=== PATIENT | female | born 1990 | race African-American/Black ===

== ENCOUNTER 2016-12-09 00:52 | Emergency (ER) | payer MEDICAID ==
[~2016-12-09] VITALS: Ht 154.9 cm; Wt 63.5 kg
[2016-12-09 00:55] VITALS: BP 124/82; PULSE 94; RESP 16; TEMP 98.6; O2SAT 96
--- NOTE | 2016-12-09 00:55 | NUR ---
Patient to ER bed 7 to gown for evaluation. Side rails up. Report given to Charlie TAVARES.
--- NOTE | 2016-12-09 00:58 | NUR ---
Pt presents to ED with c/o bilateral suprapubic and lower back pain 10/10, with shooting pain sensation down bilateral upper thighs since 7 pm yesterday. Pt stated she has implant in left arm for control, denies having any menstrual period. A&Ox4, denies SOB or chestpain, denies N/V/D. Skin intact. Will continue to monitor
--- NOTE | 2016-12-09 01:06 | NUR ---
ER MD Hollingsworth at bedside for evaluation
[2016-12-09] MEDS ORDERED: NACL 0.9% 1,000 ML IV ONE (01:09)
[2016-12-09] MEDS ORDERED: LORazepam 2 MG/ML VIAL (FOR ER USE) IVP ONE (01:15)
[2016-12-09] MEDS ORDERED: fentaNYL CITRATE/PF 100 MCG/2 ML AMP IVP ONE (01:15)
[2016-12-09] MEDS ORDERED: DIPHENHYDRAMINE INJ 50 MG/ML VIAL IVP ONE (01:15)
[2016-12-09] MEDS ORDERED: ONDANSETRON HCL 4 MG/2 ML VIAL IVP ONE (01:15)
[2016-12-09 01:26] LABS: BILIRUBIN,URINE NEGATIVE (NEGATIVE); BLOOD, URINE NEGATIVE (NEGATIVE); CLARITY/URINE CLOUDY (CLEAR); COLOR,URINE YELLOW (YELLOW); GLUCOSE,URINE NEGATIVE (NEGATIVE); KETONES,URINE NEGATIVE (NEGATIVE); LEUKOCYTE ESTERASE ,URINE 2+ (NEGATIVE); NITRITE, URINE NEGATIVE (NEGATIVE); PROTEIN URINE NEGATIVE (NEGATIVE)
[2016-12-09 01:37] LABS: BACTERIA,URINE MODERATE /HPF (None Seen); YEAST,URINE Rare /HPF (None Seen)
[2016-12-09 01:38] LABS: MUCUS,URINE 1+ /LPF (None Seen)
--- NOTE | 2016-12-09 01:43 | NUR ---
Pt in bed, stated she feels comfortable, pain 0/10
[2016-12-09 01:47] LABS: HEMOGLOBIN 13.1 g/dL (12.0-16.0); MEAN CORPUSCULAR HGB CONC 36 % (32-36)
[2016-12-09 01:50] LABS: CALCIUM 8.8 mg/dL (8.4-11.0); CREATININE 1.05 mg/dL (0.55-1.30); POTASSIUM 3.9 mmol/L (3.5-5.1)
[2016-12-09 01:51] LABS: MEAN CORPUSCULAR HEMOGLOBIN 31 pg (27-31); MEAN CORPUSCULAR VOLUME 87 fL (79.0-98.0)
[2016-12-09 01:56] LABS: ALBUMIN 3.9 g/dL (3.4-4.8); PLATELET COUNT (AUTO) 263 K/uL (130-430); RED BLOOD CELL COUNT(AUTO) 4.26 MIL/uL (4.2-6.2); RED CELL DISTRIBUTION WIDTH 12.2 % (9.0-15.0); TOTAL BILIRUBIN 0.6 mg/dL (0.0-1.0); TOTAL PROTEIN, SERUM 7.5 g/dL (6.4-8.3)
[2016-12-09 02:10] LABS: BASOPHILS % (MANUAL) 0 % (0-2); EOSINOPHILS % (MANUAL) 3 % (0-7); LYMPHOCYTES % (MANUAL) 18 % (20-46); MONOCYTES % (MANUAL) 4 % (0-11)
--- NOTE | 2016-12-09 02:29 | NUR ---
Pt taken off ED via wheelchair for US by photo lab technician, VSS, no distress noted
--- NOTE | 2016-12-09 03:10 | NUR ---
Pt returned to ED via wheelchair
[2016-12-09 03:45] VITALS: BP 102/68; PULSE 86; RESP 16; TEMP 98.6; O2SAT 96
--- NOTE | 2016-12-09 03:45 | NUR ---
Patient given written and verbal discharge instructions and verbalizes understanding. ER MD Martinez discussed with patient the results and treatment provided. Given copies of tests performed in ER. Patient in stable condition. ID arm band removed. Rx of motrin given. Patient educated on pain management and to follow up with PMD. Pain Scale 0/10 Opportunity for questions provided and answered.
== END 2016-12-09 03:45 | disposition home or self-care (01) ==
LOC: SED 00:52
DX: R10.2 Pelvic and perineal pain (principal); Z88.6 Allergy status to analgesic agent; Z88.8 Allergy status to other drugs, medicaments and biological substances
CPT/HCPCS: 36415; 76830; 76857; 80053; 81000; 85007; 85027; 87086; 96361; 96374; 96375; 99285; J1200; J2060; J2405; J3010; J7030

== ENCOUNTER 2022-06-10 11:21 | Emergency (ER) | payer MEDICAID ==
[~2022-06-10] VITALS: Ht 157.5 cm; Wt 56.7 kg
[2022-06-10 11:30] VITALS: BP_SYST 128
--- NOTE | 2022-06-10 11:30 | NUR ---
Patient triaged and placed in waiting room. VSS and patient appears in no acute distress at this time. Accompanied by MOTHER, awaiting available bed, and MD notified of need for MSE.
--- NOTE | 2022-06-10 15:02 | NUR ---
ER DR. SLOAN EXAMINING PT
[2022-06-10 15:57] LABS: BILIRUBIN,URINE NEGATIVE (NEGATIVE); BLOOD, URINE NEGATIVE (NEGATIVE); CLARITY/URINE CLEAR (CLEAR); COLOR,URINE YELLOW (YELLOW); GLUCOSE,URINE NEGATIVE (NEGATIVE); KETONES,URINE TRACE (NEGATIVE); LEUKOCYTE ESTERASE ,URINE NEGATIVE (NEGATIVE); NITRITE, URINE NEGATIVE (NEGATIVE); PROTEIN URINE NEGATIVE (NEGATIVE); UROBILINOGEN,URINE 0.2 (0.2-1.0)
--- NOTE | 2022-06-10 16:53 | NUR ---
Placed in room . Placed on access control specialist, blood pressure machine and pulse oximeter. To gown for exam. Side rails up. Report given to CHAITANYA DUMONT.
[2022-06-10] MEDS ORDERED: ONDANSETRON HCL 4 MG/2 ML VIAL IVP ONE (17:00)
[2022-06-10] MEDS ORDERED: NACL 0.9% 1,000 ML IV ONE (17:00)
[2022-06-10 17:13] LABS: BASOPHILS # (AUTO) 0.2 K/uL (0.0-0.2); BASOPHILS % (AUTO) 3.1 % (0.0-2.0); EOSINOPHILS # (AUTO) 0.2 K/uL (0.0-0.4); EOSINOPHILS % (AUTO) 3.2 % (0.0-4.0); HEMATOCRIT 34.8 % (36-48); LYMPHOCYTES # (AUTO) 1.2 K/uL (1.0-5.5); LYMPHOCYTES % (AUTO) 21.6 % (20.5-51.5); MEAN CORPUSCULAR VOLUME 88 fL (79.0-98.0); MONOCYTES # (AUTO) 0.2 K/uL (0.0-1.0); NEUTROPHILS # (AUTO) 3.8 K/uL (1.8-7.7); NEUTROPHILS % (AUTO) 69.1 % (40.0-70.0); PLATELET COUNT (AUTO) 311 K/uL (130-430); RED BLOOD CELL COUNT(AUTO) 3.97 MIL/uL (4.2-6.2); RED CELL DISTRIBUTION WIDTH 12.5 % (9.0-15.0); WHITE BLOOD COUNT (AUTO) 5.5 K/uL (4.8-10.8)
[2022-06-10 18:22] LABS: ANION GAP 9 (5-15); CHLORIDE 101 mmol/L (98-107); CREATININE 0.66 mg/dL (0.55-1.30); GFR AFRICAN AMERICAN 134 mL/min (>90); GLUCOSE 77 mg/dL (70-99); POTASSIUM 3.8 mmol/L (3.5-5.1); UREA NITROGEN, BLOOD 4 mg/dL (8-21)
[2022-06-10] MEDS ORDERED: ONDA-8 TL (18:43)
[2022-06-10 18:49] LABS: ACETONE, SERUM NEGATIVE (NEGATIVE); ALANINE AMINOTRANSFERASE 11 U/L (12-78); ALBUMIN 3.5 g/dL (3.4-4.8); ASPARTATE AMINOTRANSFERASE 15 U/L (10-37); HCG,QUANTITATIVE 204115 mIU/ML (0-6); TOTAL BILIRUBIN 0.4 mg/dL (0.0-1.0)
[2022-06-10 19:42] VITALS: BP_SYST 118
--- NOTE | 2022-06-10 19:42 | NUR ---
Patient given written and verbal discharge instructions and verbalizes understanding. ER MD discussed with patient the results and treatment provided. Patient in stable condition. ID arm band removed. IV catheter removed intact and dressing applied, no active bleeding. Rx of given. Patient educated on pain management and to follow up with PMD. Pain Scale 0/10. Opportunity for questions provided and answered. Medication side effect fact sheet provided.
== END 2022-06-10 19:42 | disposition home or self-care (01) ==
LOC: SED 11:21
DX: O21.0 Mild hyperemesis gravidarum (principal); Z3A.08 8 weeks gestation of pregnancy; Z88.6 Allergy status to analgesic agent; Z88.8 Allergy status to other drugs, medicaments and biological substances; Z79.899 Other long term (current) drug therapy
CPT/HCPCS: 99284; 96374; 76801; 96361; 80053; 82009; 84702; 85025; 36415; 81025; 83605; 81003; J2405; J7030